=== PATIENT | female | born 2000 | race Caucasian/White ===

== ENCOUNTER → 2019-06-28 10:50 | Outpatient (BNVA) | payer MEDICAID, SELFPAY | PROVIDERS: Visit Provider Obstetrics & Gynecology | DX: Z34.90 Encounter for supervision of normal pregnancy, unspecified, unspecified trimester (principal) | CPT/HCPCS: 84315; 87491; 87591 ==

== ENCOUNTER → 2019-07-23 12:56 | Outpatient (BNVA) | payer MEDICAID, SELFPAY | PROVIDERS: Visit Provider Nurse Practitioner Women's Health | DX: O26.92 Pregnancy related conditions, unspecified, second trimester (principal); R79.89 Other specified abnormal findings of blood chemistry; O99.820 Streptococcus B carrier state complicating pregnancy; O99.322 Drug use complicating pregnancy, second trimester; O99.332 Smoking (tobacco) complicating pregnancy, second trimester; O99.342 Other mental disorders complicating pregnancy, second trimester; F32.9 Major depressive disorder, single episode, unspecified; Z3A.17 17 weeks gestation of pregnancy | CPT/HCPCS: 84315; 85007; 85027 ==

== ENCOUNTER → 2019-08-15 09:54 | Outpatient (BNVA) | payer MEDICAID, SELFPAY | PROVIDERS: Visit Provider Obstetrics & Gynecology | DX: Z36.2 Encounter for other antenatal screening follow-up (principal); Z3A.18 18 weeks gestation of pregnancy | CPT/HCPCS: 76805 ==

== ENCOUNTER → 2019-08-19 08:14 | Outpatient (BNVA) | payer MEDICAID, SELFPAY | PROVIDERS: Visit Provider Obstetrics & Gynecology | DX: Z34.82 Encounter for supervision of other normal pregnancy, second trimester (principal); D47.3 Essential (hemorrhagic) thrombocythemia | CPT/HCPCS: 81003 ==

== ENCOUNTER 2019-08-29 13:08 | Outpatient (CLI) | payer MEDICAID, SELFPAY ==
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
== END 2019-08-29 13:09 | disposition home or self-care (01) ==
LOC: ONCMED 13:11
PROVIDERS: Referring Provider Nurse Practitioner Women's Health; Visit Provider Internal Medicine Medical Oncology
DX: O99.019 Anemia complicating pregnancy, unspecified trimester (principal); D64.9 Anemia, unspecified; O99.340 Other mental disorders complicating pregnancy, unspecified trimester; F32.9 Major depressive disorder, single episode, unspecified; O99.119 Other diseases of the blood and blood-forming organs and certain disorders involving the immune mechanism complicating pregnancy, unspecified trimester
CPT/HCPCS: 99203

== ENCOUNTER → 2019-09-23 09:58 | Outpatient (BNVA) | payer MEDICAID, SELFPAY | PROVIDERS: Visit Provider Obstetrics & Gynecology Female Pelvic Medicine and Reconstructive Surgery | DX: Z34.90 Encounter for supervision of normal pregnancy, unspecified, unspecified trimester (principal); Z34.82 Encounter for supervision of other normal pregnancy, second trimester | CPT/HCPCS: 81000; 82950 ==

== ENCOUNTER → 2019-10-21 10:00 | Outpatient (BNVA) | payer MEDICAID, SELFPAY | PROVIDERS: Visit Provider Obstetrics & Gynecology | DX: Z34.90 Encounter for supervision of normal pregnancy, unspecified, unspecified trimester (principal); Z34.82 Encounter for supervision of other normal pregnancy, second trimester; O26.899 Other specified pregnancy related conditions, unspecified trimester; Z67.91 Unspecified blood type, Rh negative | CPT/HCPCS: 81000; 85027 ==

== ENCOUNTER → 2019-11-04 10:26 | Outpatient (BNVA) | payer MEDICAID, SELFPAY | PROVIDERS: Visit Provider Obstetrics & Gynecology | DX: Z34.90 Encounter for supervision of normal pregnancy, unspecified, unspecified trimester (principal) | CPT/HCPCS: 81000 ==

== ENCOUNTER → 2019-11-18 10:21 | Outpatient (BNVA) | payer MEDICAID, SELFPAY | PROVIDERS: Visit Provider Obstetrics & Gynecology | DX: Z34.82 Encounter for supervision of other normal pregnancy, second trimester | CPT/HCPCS: 81000 ==

== ENCOUNTER → 2019-12-02 10:49 | Outpatient (BNVA) | payer MEDICAID, SELFPAY | PROVIDERS: Visit Provider Obstetrics & Gynecology | DX: Z34.90 Encounter for supervision of normal pregnancy, unspecified, unspecified trimester (principal) | CPT/HCPCS: 81000 ==

== ENCOUNTER → 2019-12-16 11:51 | Outpatient (BNVA) | payer MEDICAID, SELFPAY | PROVIDERS: Visit Provider Obstetrics & Gynecology | DX: O99.333 Smoking (tobacco) complicating pregnancy, third trimester; F17.210 Nicotine dependence, cigarettes, uncomplicated; O98.813 Other maternal infectious and parasitic diseases complicating pregnancy, third trimester; Z3A.36 36 weeks gestation of pregnancy; Z34.83 Encounter for supervision of other normal pregnancy, third trimester | CPT/HCPCS: 81000; 87081 ==

== ENCOUNTER → 2019-12-23 10:22 | Outpatient (BNVA) | payer MEDICAID, SELFPAY | PROVIDERS: Visit Provider Obstetrics & Gynecology | DX: Z34.82 Encounter for supervision of other normal pregnancy, second trimester (principal) | CPT/HCPCS: 81000 ==

== ENCOUNTER → 2019-12-30 10:45 | Outpatient (BNVA) | payer MEDICAID, SELFPAY | PROVIDERS: Visit Provider Obstetrics & Gynecology | DX: O99.333 Smoking (tobacco) complicating pregnancy, third trimester; O99.343 Other mental disorders complicating pregnancy, third trimester; F32.9 Major depressive disorder, single episode, unspecified; O99.323 Drug use complicating pregnancy, third trimester; Z3A.38 38 weeks gestation of pregnancy; F17.210 Nicotine dependence, cigarettes, uncomplicated | CPT/HCPCS: 81000 ==

== ENCOUNTER → 2020-01-06 08:11 | Outpatient (BNVA) | payer MEDICAID, SELFPAY | PROVIDERS: Visit Provider Obstetrics & Gynecology | DX: O99.820 Streptococcus B carrier state complicating pregnancy (principal); D47.3 Essential (hemorrhagic) thrombocythemia; O99.343 Other mental disorders complicating pregnancy, third trimester; F32.9 Major depressive disorder, single episode, unspecified; O99.333 Smoking (tobacco) complicating pregnancy, third trimester; O99.323 Drug use complicating pregnancy, third trimester; F17.210 Nicotine dependence, cigarettes, uncomplicated; F12.90 Cannabis use, unspecified, uncomplicated; O09.893 Supervision of other high risk pregnancies, third trimester; F41.9 Anxiety disorder, unspecified; Z3A.39 39 weeks gestation of pregnancy; Z67.91 Unspecified blood type, Rh negative; R82.71 Bacteriuria | CPT/HCPCS: 81000 ==

== ENCOUNTER 2020-01-07 16:55 | Inpatient (IN) | payer MEDICAID, SELFPAY ==
[2020-01-07 17:18] VITALS: BP 122/71; PULSE 109
[2020-01-07 17:30] VITALS: RESP 18; TEMP 36.9
[2020-01-07 17:38] VITALS: BMI 29.7
[2020-01-07] MEDS: miSOPROStol 100 mcg tablet 25 MCG VAGINAL (18:09)
[2020-01-07 18:14] VITALS: BP 120/77; PULSE 110
[2020-01-07 18:29] VITALS: BP 112/68; PULSE 114
[2020-01-07 18:41] LABS: Basophils % 0.3 %; Eosinophils # 0.1 10^3/uL (0.0-0.8); Eosinophils % 0.4 %; Hematocrit 29.2 % (37.0-47.0); Hemoglobin 9.6 g/dL (11.5-15.3); Lymphocytes # 2.6 10^3/uL (0.8-4.8); Lymphocytes % 17.1 %; Mean Corpuscular HGB Conc 32.9 g/dL (30.0-36.0); Mean Corpuscular Volume 91.3 fL (81-99); Mean Platelet Volume 8.9 fL (7.4-10.4); Monocytes # 0.9 10^3/uL (0.2-0.9); Monocytes % 5.7 %; Neutrophils # 11.41 10^3/uL (1.8-7.7); Neutrophils % 75.2 %; Nucleated Red Blood Cells % 0 %; Platelet Count 539 10^3/cmm (130-400); Red Cell Distribution Width 12.3 % (12.1-15.1); White Blood Count 15.2 10^3/uL (4.0-10.0)
[2020-01-07 18:44] VITALS: BP 0/0; BP 122/67; PULSE 109
[2020-01-07 19:03] LABS: Amphetamines Screen Urine Negative (Negative); Barbiturates Screen Urine Negative (Negative); Benzodiazepines Screen Urine Negative (Negative); Cocaine Screen Urine Negative (Negative); Opiate Screen Urine Negative (Negative); PCP Screen Urine Negative (Negative); THC Screen Urine Positive (Negative)
[2020-01-07] MEDS: promethazine 25 mg/mL SDV 1 mL IM (23:39)
[2020-01-07] MEDS: morphine 4 mg/mL SDV 1 mL 10 MG IM (23:39)
[2020-01-08] VITALS (86 sets, daily range): BP systolic 0–133; BP diastolic 0–73; PULSE 79–112; RESP 15–17; TEMP 36.7–37.1; O2SAT 98
[2020-01-08] MEDS: miSOPROStol 100 mcg tablet 25 MCG VAGINAL (08:01)
[2020-01-08] MEDS: alum-mag-hydroxide-sime 30 mL UDC PO ×2 (08:15→18:07)
[2020-01-08] MEDS: dextrose 5%-lactated ringers 1,000 ML 125 ML IV (13:02)
[2020-01-08] MEDS: oxytocin 30 UNIT/500 ML BAG IV (13:02)
[2020-01-08] MEDS: ampicillin 2,000 MG in sodium chloride 0.9% (plus) 50 ML 100 MG IV (13:02)
[2020-01-08] MEDS: fentaNYL 50 mcg/mL INJ 2mL IVP (13:47)
[2020-01-08] MEDS: lactated ringers 1,000 ML 999 ML IV ×2 (16:07→17:02)
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
[2020-01-08] MEDS: ampicillin 1,000 MG in sodium chloride 0.9% (plus) 50 ML 100 MG IV ×2 (17:01→20:54)
--- NOTE | 2020-01-08 17:19 | ANES.PROC ---
Anesthesia Procedures Procedure/Date: 01/08/20 Epidural: Time Out Performed: Yes Consents Signed: Procedure Consent Consent: requested by attending/covering physician, risks and benefits reviewed and patient agrees to proceed Lumbar Level: L3-L4 Epidural position: sitting Epidural procedure: sterile prep of area (betadine), 1% lidocaine to numb the area (3ml), 18 g needle, neg for paresthesia, test dose given, 1.5% xylocaine 1:200k epi (5ml), 0.2% Ropivacaine bolus ml (5ml), placed PCEA, no systemic response, sterile dressing applied, L.U.D. no apparent complications and 0.2% Ropiavacaine @ mls/hr (11ml/hr)
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
[2020-01-09] VITALS (37 sets, daily range): BP systolic 0–139; BP diastolic 0–74; PULSE 79–116; RESP 15–18; TEMP 36.6–37.3; O2SAT 97–100
[2020-01-09] MEDS: ampicillin 1,000 MG in sodium chloride 0.9% (plus) 50 ML 100 MG IV (01:48)
--- NOTE | 2020-01-09 04:05 | PM.DELIVERY ---
Delivery Note: Date of delivery: January 09, 2020 Pre-delivery diagnoses: 1. Term at 39-3/7 weeks gestation 2. GBS positive carrier status in third trimester 3. Anemia in in third trimester 4. Rh-negative status in third trimester 5. Marijuana use in in third trimester 6. Tobacco use during in third trimester 7. Depression during in third trimester Post-delivery diagnoses: 1. Term at 39-3/7 weeks gestation - delivered 2. Fourth degree perineal laceration 3. GBS positive carrier status in - delivered 4. Anemia and - delivered 5. Rh- status in - delivered 6. Marijuana use in - delivered 7. Tobacco use during - delivered 8. Depression during - delivered 9. Viable male Procedure: Spontaneous vaginal delivery and Fourth degree perineal laceration repair Op report anesthesia: Epidural Delivering Physician: Hugh Cota MD Estimated blood loss (mL): 150 Pre-Delivery Course: Patient is a 19-year-old white female 2, para 0-0-1-0 with an LMP of 03/25/2019 and an EDC of 01/13/2020 based on an 18-week ultrasound, which placed her at 39-1/7 weeks gestation at time of admission. Patient presented to L&D in the evening of 01/06 for cervical ripening and induction of labor due to term and patient desire. She received Cytotec 25 mcg vaginally and proceeded to contract regularly through the night. By the following morning, she had made minimal change and had another Cytotec 25 mcg placed vaginally. By approximately noon, she was started on Pitocin. She was also started on ampicillin for GBS prophylaxis. She became more uncomfortable and had epidural placed. By the evening she started making cervical change. She had spontaneous rupture of membranes at 23:28. She was an anterior gonzález and pushed once and the rim reduced. She was then considered complete dilation at 02:15 on 01/08. Delivery: She started pushing at 02:14. Approximately 6 minutes prior to delivery, bradycardia to the 70s and 80s occurred which was thought to be secondary to head compression. However, to expedite delivery, a second-degree episiotomy was made. She delivered with the next contraction. She delivered at 02:58 as a spontaneous vaginal delivery of an occiput anterior male infant over a second-degree episiotomy under epidural anesthesia. Following delivery of the infant's head, no nuchal cords were noted. The rest the delivered atraumatically with the left shoulder anterior. Baby was placed on the mother's abdomen where it was left in the care of the waiting nurses. Baby was spontaneously crying. Cord was clamped. It was cut by a family member. Cord blood was obtained. Pitocin bolus was started. Placenta delivered intact by simple expression at 03:02. Cervix and upper vagina were palpated and noted to be intact. Labia and perineum were inspected and noted to be intact except for 1/4 degree extension of her second-degree episiotomy. The rectal mucosa had been torn for a distance of approximately 3 cm from the anal opening. The rectal and anal mucosa were reapproximated using 3-0 chromic suture in a simple running fashion. The muscularis of the rectum was folded over the suture line using running stitch of 3-0 Vicryl suture. The vaginal mucosa and underlying tissue was reapproximated using 3-0 Vicryl suture in a running locking fashion. This was carried to just inside of the hymenal ring and then held. The anal sphincter was identified and grasped with Allis clamps. The sphincter and surrounding capsule was reapproximated using interrupted stitches of 2-0 Vicryl suture with stitches placed at 6, 8, 4, 10, 2, and 12:00 positions. The perineal body was then further built-up using interrupted stitches of 2-0 Vicryl suture. The previously held 3-0 Vicryl suture within the vaginal mucosa was then carried to just beyond the hymenal ring. A transition stitch was made. The bulbocavernosus muscles were incorporated into the stitch bilaterally and this stitch tied. The superficial perineal tissue was reapproximated using 3-0 Vicryl suture in a running fashion. Perineal skin was reapproximated using 3-0 Vicryl suture in a subcuticular fashion. FINDINGS 1. Viable male infant weighing 8 lbs 4 oz (3745 g) with a length of 21-1/2 inches and Apgars of 7 at 1 minute and 9 at 5 minutes. 2. Three-vessel cord with no loops of nuchal cord noted. 3. Normal-appearing placenta with an eccentric cord insertion. 4. Fourth degree perineal laceration Post-Delivery Status: Mother and infant were left to recover in satisfactory condition. A&P Assessment and plan (1) Term delivered: Status: Acute (2) Fourth degree perineal laceration: Status: Acute (3) Anemia during , delivered, current hospitalization: Status: Acute (4) Group B Streptococcus carrier, delivered, current hospitalization: Status: Acute (5) Mental disorder in , delivered: Status: Acute (6) Rh negative, delivered, current hospitalization: Status: Acute (7) Drug dependence of mother in , delivered: Status: Acute (8) Tobacco use during , delivered: Status: Acute Coding Level of Care Code Acute Pattern Storage Clerk for [facility] [facility] Diagnoses Term delivered O80 Fourth degree perineal laceration O70.3 Group B Streptococcus carrier, delivered, current hospitalization O99.824 Anemia during , delivered, current hospitalization O99.02 Rh negative, delivered, current hospitalization O26.899; Z67.91 Drug dependence of mother in , delivered O99.324; F19.20 Tobacco use during , delivered O99.334 Mental disorder in , delivered O99.344
[2020-01-09] MEDS: lidocaine 2% INJ 20 mL INJECTION (04:08)
[2020-01-09] MEDS: lanolin oint 7 gm 1 APPLIC TOPICAL (05:39)
[2020-01-09] MEDS: benzocaine-menthol 78 gm Canister 1 SPRAY TOPICAL (05:40)
[2020-01-09] MEDS: prenatal vitamin Capsule 1 CAP PO (10:26)
[2020-01-09] MEDS: docusate sodium 100 mg Capsule PO ×2 (10:26→18:19)
[2020-01-09 18:12] LABS: Hemoglobin 8.5 g/dL (11.5-15.3); Mean Corpuscular HGB Conc 32.7 g/dL (30.0-36.0); Mean Corpuscular Hemoglobin 30.6 pg (28.0-34.0); Mean Corpuscular Volume 93.5 fL (81-99); Mean Platelet Volume 8.6 fL (7.4-10.4); Platelet Count 401 10^3/cmm (130-400); Red Blood Count 2.78 10^6/uL (4.1-5.3); Red Cell Distribution Width 12.5 % (12.1-15.1); White Blood Count 14.1 10^3/uL (4.0-10.0)
[2020-01-09] MEDS: TRAMadol 50 mg Tablet PO (19:49)
[2020-01-10 05:59] VITALS: BP 102/62; PULSE 82; RESP 15; TEMP 36.9
--- NOTE | 2020-01-10 06:02 | P.DS_ITS ---
Discharge Providers DEV OPS ENGINEER Date of Admission: 01/08/20 19:45 Date of Discharge: 01/10/20 Attending Provider at Admission: Hugh Cota MD Attending Provider at Discharge: Hugh Cota MD Diagnoses at Discharge Discharge Diagnosis (1) Term delivered: Status: Acute (2) Fourth degree perineal laceration: Status: Acute (3) Group B Streptococcus carrier, delivered, current hospitalization: Status: Resolved (4) Anemia during , delivered, current hospitalization: Status: Acute (5) Rh negative, delivered, current hospitalization: Status: Resolved (6) Drug dependence of mother in , delivered: Status: Resolved (7) Tobacco use during , delivered: Status: Resolved (8) Mental disorder in , delivered: Status: Acute Reason for Visit Reason for Visit: induction of labor Hospital Course Hospital Course: Patient is a 19-year-old white female 2, para 0-0-1-0 with an LMP of 03/25/2019 and an EDC of 01/13/2020 based on an 18-week ultrasound, which placed her at 39-1/7 weeks gestation at the time of admission. She presented to labor and delivery in the evening of 01/06 for Cytotec cervical ripening and induction of labor due to term and desire to be delivered. She had 1 Cytotec 25 mcg vaginally that evening and a second dose the following morning. She was started on Pitocin by around noon on 01/07. She had also been started on ampicillin for GBS prophylaxis due to positive GBS status. She had epidural placed later that afternoon. She had spontaneous rupture of membranes at 23:28 on 01/07. She progressed to complete dilation by 02:15 on 01/08. She delivered at 02:58 as a spontaneous vaginal delivery of an occiput anterior male infant over a second-degree midline episiotomy under epidural anesthesia. The episiotomy extended to a 4th degree laceration which was repaired. The baby weighed 8 pounds 4 ounces (3745 g with a length of 21- 1/2 inches and Apgars of 7 at 1 minute and 9 at 5 minutes. Following delivery mother and baby did well. Day 1 Patient reported doing well. She was tolerating a regular diet without nausea or vomiting. She was ambulating without lightheadedness or dizziness. She denied shortness of breath or chest pains. She reported her pain was well controlled. She denied problems with urination. She reported her bleeding had slowed. She was requesting to go home. Physical Exam: See below Plan Discharged home. Patient plans to use [id number] ibuprofen for pain relief. Patient denied problems with depression and had not been requiring medication. Potential for development of depression was discussed. Patient not interested in medications at this time. Patient was anemic . She was instructed to take her vitamins at home and encour aged to take [id number]-eor-[id number] iron. Information Peripartum Data: Delivery Method: Vaginal Physical Exam Const: COMMON NORMALS: no acute distress, average body habitus, alert and well nourished GENERAL APPEARANCE: well developed ORIENTATION/CONSCIOUSNESS: Yes oriented to person, Yes oriented to place and Yes oriented to time Resp: COMMON NORMALS: normal respiratory effort and clear to auscultation bilaterally AUSCULTATION: clear to auscultation bilaterally Cardio: COMMON NORMALS: regular rate, regular rhythm, No gallops present (Cardio) and No rub (Cardio) RATE: regular rate RHYTHM: regular rhythm GI: COMMON NORMALS: Soft to palpation, non-tender, No hepatosplenomegaly present and no masses (except for firm, nontender uterus 2 fingerbreaths below umbilicus) AUSCULTATION: Yes normoactive bowel sounds PALPATION: Yes Soft to palpation, Yes No hepatosplenomegaly present and No Hernia present : EXTERNAL FEMALE EXAM: No Hernia present Extremity: COMMON NORMALS: no calf tenderness NARRATIVE EXTREMITY EXAM: trace edema bilaterally Neuro: SENSORIUM/ORIENTATION: Yes alert, Yes oriented to person, Yes oriented to place and Yes oriented to time Psych: COMMON NORMALS: normal affect MOOD & AFFECT: Yes euthymic mood Urinary Catheter Management^: Nicole: Cath Placed During This Visit: yes, but has since been removed by the nurse Reason for Continuing Indwelling Catheter: Required Immobilization for Trauma or Surgery or Anesthesia Urinary Catheter Date of Insertion: 01/08/20 Urinary Catheter Time of Insertion: 17:50 Date Urinary Catheter Removed: 01/09/20 Time Urinary Catheter Discontinued: 02:10 Discharge Data Data Completed and Pending: Pending at discharge Category Date Time Status Complete Crossmat ch Routine Lab 01/07/20 18:00 Results Rho D Immune Glob ulin Routine Lab 01/07/20 18:00 Results Type and Screen R outine Lab 01/07/20 18:00 Results Labs from last 24 hours 01/09/20 01/09/20 01/07/20 17:53 17:53 18:00 WBC 14.1 H RBC 2.78 L Hgb 8.5 L Hct 26.0 L MCV 93.5 MCH 30.6 MCHC 32.7 RDW 12.5 Plt Count 401 H MPV 8.6 Blood Type A Negative Rho(D) Type Negative Antibody Screen Negative Screen Negative Vitals: Last Vital Signs Temp 98.4 F 01/10/20 05:59 Pulse 82 01/10/20 05:59 Resp 15 01/10/20 05:59 BP 102/62 01/10/20 05:59 Pulse Ox 99 01/09/20 16:32 Discharge Plan Discharge Patient Disposition: Home Condition: Stable Prescriptions: Continued Gummies 400 mcg-35 mg- 25 mg-5 mg tablet,chewable PO DAILY RF: 0 Discharge Orders: Discharge Order (Routine); Ordered 01/10/20 Ordered By: Hugh Cota Referrals: Tom Mallory MD [Physician] - 02/21/20 1:00 pm (* Your 6 week follow up appointment is with Dr. Mallory on Friday February 21, 2020 at 1:00pm. ) Discharge Diet: Regular Discharge Activity: Limit activity as instructed Patient Instructions: OB Discharge Report, OB Anesthesia Instructions, OB Food/Drug Interaction Guide, OB Home Care, OB Proud Parent Packet, OB Vaginal Deliveries - [facility] Activity Restrictions/Additional Instructions: may use OTC ibuprofen 200 mg (3 tablets 4 times a day or 4 tablets 3 times a day, as needed for pain. Recommend use of stool softeners or MiraLax Discharge Date/Time: 01/10/20 10:05 Discharge Attestations DEV OPS ENGINEER Time Spent in Discharge Care*: less than 30 min Coding Level of Care Code Acute Chemical Plant Operator for Chg Fwd Exam Detailed Diagnoses Term delivered O80 Fourth degree perineal laceration O70.3 Group B Streptococcus carrier, delivered, current hospitalization O99.824 Anemia during , delivered, current hospitalization O99.02 Rh negative, delivered, current hospitalization O26.899; Z67.91 Drug dependence of mother in , delivered O99.324; F19.20 Tobacco use during , delivered O99.334 Mental disorder in , delivered O99.344
[2020-01-10 09:41] VITALS: BP 94/61; PULSE 92; RESP 17; TEMP 36.8; O2SAT 98
[2020-01-10 10:00] VITALS: BP 94/61; PULSE 92; RESP 18; TEMP 36.7; O2SAT 98
--- NOTE | 2020-01-10 16:19 | PC.RESP ---
SMOKING CESSATION INFORMATION SENT TO PATIENT.
== END 2020-01-10 10:05 | disposition home or self-care (01) | DRG 768 ==
PROVIDERS: Admitting Provider Obstetrics & Gynecology; Visit Provider Obstetrics & Gynecology
DX: O99.824 Streptococcus B carrier state complicating childbirth (principal); Z37.0 Single live birth; Z3A.39 39 weeks gestation of pregnancy; O99.334 Smoking (tobacco) complicating childbirth; F17.210 Nicotine dependence, cigarettes, uncomplicated; O99.02 Anemia complicating childbirth; D64.9 Anemia, unspecified; O99.324 Drug use complicating childbirth; O99.344 Other mental disorders complicating childbirth; F99 Mental disorder, not otherwise specified; F12.20 Cannabis dependence, uncomplicated; F32.9 Major depressive disorder, single episode, unspecified; O70.3 Fourth degree perineal laceration during delivery
CPT/HCPCS: 12345; 36415; 51702; 59409; 80306; 85025; 85027; 85460; 86850; 86900; 90384; 96372; 96374; 98960; G0378; G0379; J0290; J2270; J2550; J2795; J3010

== ENCOUNTER 2020-02-12 11:20 | Day surgery (SDC) | payer MEDICAID, SELFPAY ==
[2020-02-11 09:57] VITALS: BMI 29.7
[2020-02-12] VITALS (9 sets, daily range): BP systolic 108–152; BP diastolic 67–99; PULSE 66–96; RESP 13–24; TEMP 36.2–36.8; O2SAT 90–100
--- NOTE | 2020-02-12 11:33 | W.PM.OPSUD ---
Surgery/Procedure H&P Update DATE OF PROCEDURE: February 12, 2020 DATE H&P PERFORMED: 01/30/20 H&P UPDATE INFORMATION: I have reviewed H&P completed within last 30 days, I have examined patient prior to procedure and No changes to prior documentation PREOP DIAGNOSIS: cholelithiasis PLANNED PROCEDURE: Operation Date: 02/12/20 13:00 Proposed Procedures p Laparoscopic poss Open Cholecystectomy 52708 K80.20(Not Applicable) - Eduin Ross MD
[2020-02-12 11:51] LABS: OR HCG Qualitative Urine Negative (Negative)
[2020-02-12] MEDS: sodium chloride 0.9% 1,000 ML 30 ML IV (11:53)
--- NOTE | 2020-02-12 12:03 | P.ANESASSM_ITS ---
Pre-Anesthetic Assessment Pre-Anesthetic Assessment: Height/Weight: Height 1.65 m Weight 81.193 kg Temp Pulse Resp BP Pulse Ox 97.7 F 66 18 108/68 100 02/12/20 11:43 02/12/20 11:43 02/12/20 11:43 02/12/20 11:43 02/12/20 11:43 Preop Diagnosis: cholelithiasis Proposed Procedure: Operation Date: 02/12/20 13:00 Proposed Procedures p Laparoscopic poss Open Cholecystectomy 24970 K80.20(Not Applicable) - Eduin Ross MD Was Beta Walt taken within 24 hours: N/A Last intake: Intake Last Liquid Date 02/12/20 Last Liquid Time 01:00 Last Solid Date 02/11/20 Last Solid Time 21:00 Last Intake: 23:00 Social: Social History: No alcohol and No tobacco (stop ) Packs per day: 1 Exam: Pre-Anes Outpt Exam: alert, oriented x 3, clear to auscultation bilaterally and regular rate & rhythm Airway: Submandibular: WNL Cervical ROM: WNL MP: 2 Pulmonary: Pulmonary: None reported CV/HEM: CV/HEM: Anemia (with ) : : None reported Hepatic: Hepatic: None reported GI: GI: GERD (food related) Metabolic: Metabolic: None reported Musc/skel: Musc/skel: None reported Neuropsych: Neuropsych: None reported Anesthetic Plan: ASA status: 2 Anesthesia: Anesthesia Evaluation and General Risk of > 500 ml blood loss (7ml/kg in children): No Meds/Allergies Current Medications: Current Medications Generic Name Dose Route Start Last Admin Trade Name Freq PRN Reason Stop Dose Admin Sodium Chloride 1,000 mls @ 30 ml s/hr 02/12/20 11:30 02/12/20 11:53 Sodium Chloride 0.9% IV 02/13/20 11:29 30 mls/hr .Q24H WILLIAN Administration PFSH Anesthesia PFSH: Medical History (Updated 01/31/20 @ 17:21 by Eduin Ross MD) Chronic headache - encouraged tylenol and benadryl; may need neuro referral History of depression - has been off medication for several weeks; managed without medication Surgical History History of dilation and curettage (~2017) ---[place] SAB[place] [facility] [place] Family History Grandmother Hypertension maternal Grandfather Non-Hodgkin lymphoma Maternal Unknown Patient denies medical problems Denies family history of: stroke,thyroid,dm,breast/ovarian/uterine/ colon/prostate cancer Other Cancer Denies family history of Diabetes Anesthesia complication Bleeding disorder Social History Smoking and tobacco status: current every day smoker Quit status (tobacco): has quit using tobacco Former quit date comment: 12/09/19 Alcohol intake: never Lives independently: Yes Marital status: Single Current occupational status: employed History of recent travel: No Female Reproductive History: Date of last menstrual period: 02/06/19 Data Anesthesia Other Labs: Laboratory Results - last 48 hr 02/12/20 11:25 Urine HCG, Qual Negative Cardiac Studies: No Data to Display
[2020-02-12] MEDS: ketorolac 30 mg/mL INJ 15 MG IVP (14:15)
--- NOTE | 2020-02-12 14:17 | SUR.PHASEI ---
1411 PATIENT TO PACU FROM OR. RR EVEN AND UNLABORED. SPO2 98% ON RA. 4 INCISIONS TO ABDOMEN, CDI, CLOSED WITH EXOFIN.
[2020-02-12] MEDS: fentaNYL 50 mcg/mL INJ 2mL IVP (14:22)
--- NOTE | 2020-02-12 14:38 | SUR.PHASEI ---
1432 PATIENT TO OPS. RR EVEN AND UNLABORED. TOLERATING ICE CHIPS. 4 INCISIONS TO ABDOMEN, CDI.
--- NOTE | 2020-02-12 14:39 | SUR.PHASEI ---
1432 ANESTHESIA AWARE OF LAST DOSE OF PAIN MEDICATION. THIS NURSE REMAINED WITH PATIENT UNTIL 1433
[2020-02-12] MEDS: HYDROcodone-acetaminophen 5-325 mg Tablet 1 TAB PO (15:14)
--- NOTE | 2020-02-12 15:32 | P.OP_ITS ---
Operative Report Date of procedure: February 12, 2020 Pre-op Diagnosis: cholelithiasis Post-op Findings: Chronic calculus cholecystitis Procedure Done: Laparoscopic cholecystectomy Specimens removed/disposition: gallbladder Surgeon: Eduin Ross Surgeon: Condition: stable Disposition: PACU Procedure: The patient was taken to the operating room and was intubated under general anesthesia. After the antibiotic had been administered, the abdomen was prepped and draped in a sterile manner. Using a #15 blade, a 1 centimeter infraumbilical curvilinear incision was made and using an open Chan technique the peritoneal cavity was entered. A 10 millimeter port was placed and 15 millimeters of pneumoperitoneum was created. A 10 millimeter, 30 degrees scope was then introduced. Three 5 millimeter ports were placed in the epigastric, midclavicular and the anterior axillary line two fingerbreadths below the costal margin on the right side under the direct visualization. The gallbladder wall w as thickened, the stomach and the colon was adherent to the body of the gallbladder which had to be slowly peeled away using blunt dissection and electrocautery until the infundibulum of the gallbladder was identified. Ratcheted forceps were introduced into the lateral most port and was used to retract the fundus of the gallbladder cephalad and using forceps the infundibulum of the gallbladder was retracted laterally. Using L-hook cautery the peritoneum overlying the Calot's triangle was opened medially and laterally until the cystic duct and the cystic artery were skeletonized. There was s ignificant inflammation near the cystic duct which made dissection difficult. There was bleeding from the cystic artery where there was significant inflammation which was controlled with clips. Dissection was carried along the body of the gallbladder and after ensuring critical view of safety, 4 clips applied on the cystic duct and 3 clips applied on the cystic artery and cut leaving, 3 clips on the remaining portion of the duct and 2 clips on the remaining portion of the artery. The rest of the gallbladder was dissected off the liver using L-hook cautery. There was no bleeding or bile leaking noted from the gallbladder fossa and the clips appeared to be in place. An EndoCatch bag was introduced to remove the gallbladder. All the ports were removed under direct visualization and there was no bleeding noted from the port sites. The fascia of the umbilicus was closed using [id number] 0 Vicryl sutures and the subcutaneous tissue was approximated using 3-0 Vicryl sutures. The skin at all four ports were closed using 4-0 Monocryl and Dermabond. A total of 10 millimeters of 0.5% Marcaine was infiltrated around the port sites. The patient was stable throughout the procedure.
== END 2020-02-12 16:18 | disposition home or self-care (01) ==
PROVIDERS: Anesthesiology; Visit Provider Surgery
PROC: 0FT44ZZ Resection of Gallbladder, Percutaneous Endoscopic Approach (ICD-10-PCS; CPT 47562; principal; 2020-02-12 13:00)
DX: K80.10 Calculus of gallbladder with chronic cholecystitis without obstruction (principal); K21.9 Gastro-esophageal reflux disease without esophagitis; Z87.891 Personal history of nicotine dependence
CPT/HCPCS: 47562; 12345; 81025; 84703; 88304; J0690; J1100; J1885; J2405; J2704; J3010; J3490; J7030

== ENCOUNTER 2023-03-17 10:22 | Emergency (ER) | payer MEDICAID, SELFPAY ==
[2023-03-17] VITALS (7 sets, daily range): BP systolic 108–180; BP diastolic 57–85; PULSE 84–101; RESP 15–18; TEMP 36.6; O2SAT 93–100; BMI 26.6
[2023-03-17 11:22] LABS: Basophils # 0.1 10^3/uL (0.0-0.1); Basophils % 0.3 %; Eosinophils % 0.3 %; Hematocrit 34.2 % (36-47); Lymphocytes # 1.1 10^3/uL (0.8-4.8); Lymphocytes % 7.8 %; Mean Corpuscular HGB Conc 33.6 g/dL (30-55); Mean Corpuscular Hemoglobin 30.8 pg (27-33); Mean Corpuscular Volume 91.7 fl (85-98); Mean Platelet Volume 8.5 fL (7.4-10.4); Monocytes # 0.6 10^3/uL (0.2-0.9); Monocytes % 4.4 %; Neutrophils % 86.7 %; Nucleated Red Blood Cells % 0 %; Platelet Count 394 10^3/cmm (157-399); Red Blood Count 3.73 10^6/uL (3.85-5.65); Red Cell Distribution Width 12.3 % (12.1-15.1); White Blood Count 14.42 10^3/uL (3.29-11.43)
--- NOTE | 2023-03-17 11:23 | CT_ITS ---
WS: [id number] CT FACIAL BONES with contrast HISTORY: left face swelling TECHNIQUE: Images obtained from the supraorbital location through the mandible. Soft tissue and bone windows are reviewed. Coronal and sagittal reformats have also been submitted. DLP: 606.[address] scans at [facility] use at least one of these dose optimization techniques: automated e xposure control; mA and/or kV adjustment per patient size (includes targeted exams where dose is matc hed to clinical indication); or iterative reconstruction. COMPARISON: None available. Axial imaging with and without contrast. Reformatted images. Omnipaque 350; 80 mL IV. Complex fluid collection in the LEFT route salesman and driver and parotid spaces. There is a complex fluid collecti on with enhancing clark and adjacent soft tissue edema and inflammation. This is a multiloculated flu id collection measuring 5.2 cm transversely by 3.1 cm anterior posterior and extends over a length of 3.7 cm. Fluid collection along the medial LEFT mandible in the sublingual space and extends posterio r and lateral to the mandibular ramus. There is extension into the parotid gland. There is also invol vement of the masseter muscles. Large hypervascular cervical chain lymph nodes at level 1 and level 2 . Largest lymph node is 1.6 cm at level 1B on the LEFT. Additional hypervascular enlarged level 2 lym ph nodes. There is evidence for dental caries involving several of the molars in the LEFT mandible. Suspect thi s may be an dental abscess from dental caries. Loss of the normal mandible surrounding several of the posterior left-sided molars. No air-fluid levels in the sinuses. Normal orbits and globes. IMPRESSION: 1. Large complex fluid collection with peripheral enhancement and soft tissue enhancement centered in volving the LEFT masseter and parotid spaces. Consistent with an abscess. Abscess measures 5.2 x 3.1 x 3.7 cm and. Favor this is probably an abscess due to the adjacent dental caries with loss of the no rmal bone surrounding several of the molars in the LEFT mandible. 2. Significantly enlarged hyperemic lymph nodes in the LEFT neck involving the level 1 and level 2.
--- NOTE | 2023-03-17 11:26 | W.ED.DENTAL ---
HPI - Dental/Oral General: Chief complaint: Dental/Oral Stated complaint: absence on left side face Time Seen by Provider: 03/17/23 11:19 Source: patient and family Mode of arrival: ambulatory Limitations: no limitations History of Present Illness: This patient presents to our emergency department because swelling of her left face which is gradually worsened over the past 3 days. She states that she has had some prodromal pain in her left jaw and teeth for several days prior to the onset of her current swelling. She has had some subjective fever as well. She states she has been able to drink fluids but not able to eat well because of the discomfort discomfort and swelling. She has a history of recurrent dental abscesses in the past. She has no current dental care. She denies any other symptoms at this time. She states that she has been taking amoxicillin for the past 3 days that she obtained at the feed store. Duration: worsening Associated symptoms: Reports fever(s); Denies odynophagia Review of Systems Const: Reports: fever(s); Denies: chills or body aches Eyes: Denies: change in vision or blurry vision ENMT: Reports: dental pain and halitosis; Denies: throat pain, odynophagia, nasal discharge or nasal congestion Card: Denies: chest pain or palpitations Resp: Denies: dyspnea, productive cough or non-productive cough GI: Denies: abdominal pain, nausea, vomiting or diarrhea : Denies: difficulty voiding, dysuria or vaginal bleeding Musc: Denies: neck pain, back pain, extremity pain or extremity swelling Skin/Breast: Denies: rash or pruritus Neuro: Denies: headache(s), numbness in extremities or weakness in extremities Robert/Lymph: Denies: easy bruising or easy bleeding PFSH ED PFSH: Medical History Anemia during , delivered, current hospitalization Chronic headache - encouraged tylenol and benadryl; may need neuro referral Encounter for surveillance of transdermal patch hormonal contraceptive device Fourth degree perineal laceration History of depression - has been off medication for several weeks; managed without medication Mental disorder in , delivered Term delivered Thrombocytosis Surgical History History of dilation and curettage (~2018) ---treatment for SAB--- [facility] Status post laparoscopic cholecystectomy (02/12/20) Family History Grandmother Hypertension maternal Grandfather Non-Hodgkin lymphoma Maternal Unknown Patient denies medical problems Denies family history of: stroke,thyroid,dm,breast/ovarian/uterine/colon/prostate cancer Other Cancer Denies family history of Diabetes Anesthesia complication Bleeding disorder Social History Smoking and tobacco status: former smoker Quit status (tobacco): has quit using tobacco Former quit date comment: 12/09/19 Alcohol intake: never Substance/Drug Use: never Lives independently: Yes Marital status: Single Current occupational status: employed Female Reproductive History: Para: 1 Spontaneous abortions: Yes (1) Physical Exam Narrative: EXAM NARRATIVE: The patient is alert obvious some discomfort and swelling of her left face. Const: COMMON NORMALS: average body habitus, patient oriented x3 and alert GENERAL APPEARANCE: cooperative ORIENTATION/CONSCIOUSNESS: Yes awake, Yes oriented to person and Yes oriented to place HENMT: COMMON NORMALS: normocephalic, atraumatic, TM's normal bilaterally and Normal external nose present HEAD & SCALP: normocephalic and atraumatic FACE & SINUS: edema FACE & SINUS IMAGES: 1. Swelling NOSE: Normal external nose present TYMPANIC MEMBRANE: TM's normal bilaterally TEETH & GINGIVA: Yes poor dentition OTHER: Patient's notable for extremely poor dental repair with numerous decayed and missing teeth. She has had tenderness over her left face to include from the inferior portion of the orbit down to the inferior mandible. She has some reduced ability to open her mouth. Tongue is noted to be mobile without any subungual edema or change in character. Able to speak in complete sentences. Eye: COMMON NORMALS: Equal, round and reactive pupils present, EOMs intact bilaterally and conjunctivae normal CONJUNCTIVA: Yes conjunctivae normal PUPIL: Yes Equal, round and reactive pupils present Neck/C-Spine: COMMON NORMALS: full ROM, supple, no meningeal signs and Thyroid normal THYROID: Thyroid normal Chest: COMMONS NORMALS: normal inspection of the chest Resp: COMMON NORMALS: normal respiratory effort, No use of accessory muscles and clear to auscultation bilaterally AUSCULTATION: clear to auscultation bilaterally Cardio: COMMON NORMALS: regular rate, regular rhythm, No murmurs present (Cardio) and Peripheral pulses 2+ throughout RATE: regular rate RHYTHM: regular rhythm PERIPHERAL PULSES: Peripheral pulses 2+ throughout GI: COMMON NORMALS: Normal to inspection, nondistended, normoactive bowel sounds present and Soft to palpation PALPATION: Yes Soft to palpation Back/Pelvis: COMMON NORMALS: thoracic and lumbar spine normal to inspection, no thoracic nor lumbar tenderness and thoraco-lumbar ROM normal Extremity: COMMON NORMALS: normal to inspection, full ROM, no calf tenderness and no pedal edema Neuro: COMMON NORMALS: patient oriented x3, moves all extremities, no focal motor deficits and no sensory deficits noted SENSORIUM/ORIENTATION: Yes alert, Yes oriented to person and Yes oriented to place MENINGEAL SIGNS: Yes no meningeal signs CRANIAL NERVES: Yes CN normal except as noted Psych: COMMON NORMALS: mental status grossly normal Skin: COMMON NORMALS: no wounds and turgor normal GENERAL SKIN EXAM: turgor normal Course Reevaluation(s): Reevaluation #1: Discussed CT scan findings with the patient and mother. Time: 12:27 Reevaluation #2: Recheck on patient reveals that she is actually having some increased mobility more easily. I discussed expectAnd able to open her jaw a little bit course and plan of care. Time: 14:46 Consultations: Consultation #1: Who recommendPhone consultation with Dr. Campo of [facility] service as transfer to hospitalist service and he will consult for possible surgical drainage. Time: 13:28 Consultation #2: Discussed with Elizabeth reviewed her case Who is a [employer] ODD with the hospitalist service from [facility] she agreed to accept the patient for the hospitalist service. Time: 14:41 Vital Signs: Vital signs: Vital Signs Temperature 97.8 F 03/17/23 11:01 Pulse Rate 84 03/17/23 11:13 Respiratory Rate 16 03/17/23 11:13 Blood Pressure 129/85 03/17/23 11:13 Pulse Oximetry 100 03/17/23 11:13 Oxygen Delivery Me thod Room Air 03/17/23 11:13 [facility] - Dental/Oral Medical Decision Making Patient presented with a 3+ day history of increasing facial swelling difficulty with eating because of current symptoms as well as associated subjective fevers. Past history of significant issues with poor dentition etc. Clinical presentation revealed her to be uncomfortable however she was not tachycardic and had otherwise normal vital signs in the emergency department. Her clinical examination revealed some evidence of trismus but she had a mobile tongue and otherwise no evidence to suggest a involvement of her deep spaces of her neck. Because of her presentation a imaging was ordered in addition to empiric treatment with steroids, antibiotics and analgesics. Complex fluid collection consistent with abscess to involve various structures including the masseter, parotid etc. on CT scan prompted consultation with oral maxillofacial surgery. They recommended transfer to [facility] inpatient service and they will consult for her care and possible surgical drainage. Discussed with hospitalist service at [facility] who agreed to accept the patient in transfer. Lab Data I reviewed the patient's lab results. 03/17/23 11:10 03/17/23 11:10 Laboratory Results WBC 14.42 10^3/uL (3.29-11.43) H 03/17/23 11:10 RBC 3.73 10^6/uL (3.85-5.65) L 03/17/23 11:10 Hgb 11.50 g/dL (11.27-16.99) 03/17/23 11:10 Hct 34.2 % (36-47) L 03/17/23 11:10 MCV 91.7 fl (85-98) 03/17/23 11:10 MCH 30.8 pg (27-33) 03/17/23 11:10 MCHC 33.6 g/dL (30-55) 03/17/23 11:10 RDW 12.3 % (12.1-15.1) 03/17/23 11:10 Plt Count 394 10^3/cmm (157-399) 03/17/23 11:10 MPV 8.5 fL (7.4-10.4) 03/17/23 11:10 Neut % (Auto) 86.7 % 03/17/23 11:10 Lymph % (Auto) 7.8 % 03/17/23 11:10 Harmon % (Auto) 4.4 % 03/17/23 11:10 Eos % (Auto) 0.3 % 03/17/23 11:10 Baso % (Auto) 0.3 % 03/17/23 11:10 Neut # (Auto) 12.50 10^3/uL (1.8-7.7) H 03/17/23 11:10 Lymph # (Auto) 1.1 10^3/uL (0.8-4.8) 03/17/23 11:10 Harmon # (Auto) 0.6 10^3/uL (0.2-0.9) 03/17/23 11:10 Eos # (Auto) 0.0 10^3/uL (0.0-0.8) 03/17/23 11:10 Baso # (Auto) 0.1 10^3/uL (0.0-0.1) 03/17/23 11:10 Nucleated RBC % (auto) 0 % 03/17/23 11:10 Nucleated RBCs # 0.0 /100WBC 03/17/23 11:10 Sodium 137 mmol/L (136-145) 03/17/23 11:10 Potassium 3.8 mmol/L (3.5-5.1) 03/17/23 11:10 Chloride 101 mmol/L (98-107) 03/17/23 11:10 Carbon Dioxide 23 mmol/L (22-29) 03/17/23 11:10 Anion Gap 16.8 (5-19) 03/17/23 11:10 BUN 13 mg/dL (6-20) 03/17/23 11:10 Creatinine 0.8 mg/dL (0.5-0.9) 03/17/23 11:10 GFR Calculation 88.1 mL/min (90-130) L 03/17/23 11:10 Glucose 101 mg/dL (65-115) 03/17/23 11:10 Calculated Osmolality 284 mOsm/kg (285-295) L 03/17/23 11:10 Calcium 9.4 mg/dL (8.5-10.5) 03/17/23 11:10 Total Bilirubin 0.3 mg/dL (0.15-1.2) 03/17/23 11:10 AST 14 U/L (0-32) 03/17/23 11:10 ALT 10 U/L (0-33) 03/17/23 11:10 Alkaline Phosphatase 70 U/L (35-105) 03/17/23 11:10 Total Protein 8.0 g/dL (6.6-8.7) 03/17/23 11:10 Albumin 4.4 g/dL (3.5-5.2) 03/17/23 11:10 Globulin 3.6 g/dL (1.3-4.6) 03/17/23 11:10 All radiology interpretation(s) finalized by discharge Discharge Plan Discharge Patient Disposition: Xfer Short-Term Hosp Clinical Impression: Abscess of parotid masseteric region of face, Dental caries, Dental abscess Condition: Stable Prescriptions: No Action No Known Home Medications Coding Level of Care Code ED Chief Executive for Raul Dempsey
[2023-03-17] MEDS: ketorolac 30 mg/mL INJ 15 MG IVP ×2 (11:31→18:47)
[2023-03-17] MEDS: dexamethasone 10 mg/mL INJ IVP (11:33)
[2023-03-17] MEDS: cefTRIAXone 2,000 MG in sodium chloride 0.9% (plus) 50 ML 100 MG IV (11:36)
[2023-03-17 11:38] LABS: Alanine Aminotransferase 10 U/L (0-33); Albumin Level 4.4 g/dL (3.5-5.2); Alkaline Phosphatase 70 U/L (35-105); Anion Gap 16.8 (5-19); Aspartate Amino Transferase 14 U/L (0-32); Blood Urea Nitrogen 13 mg/dL (6-20); Calcium 9.4 mg/dL (8.5-10.5); Carbon Dioxide 23 mmol/L (22-29); Chloride 101 mmol/L (98-107); Globulin 3.6 g/dL (1.3-4.6); Glomerular Filtration Rate 88.1 mL/min (90-130); Glucose 101 mg/dL (65-115); Osmolality Calculated 284 mOsm/kg (285-295); Potassium 3.8 mmol/L (3.5-5.1); Sodium 137 mmol/L (136-145); Total Bilirubin 0.3 mg/dL (0.15-1.2)
[2023-03-17] MEDS: iohexol 350 mg/mL 500 mL Btl (per mL) IV (11:49)
[2023-03-17] MEDS: morphine 4 mg/mL SDV 1 mL IVP (16:26)
[2023-03-17] MEDS: ondansetron 2 mg/ML SDV 2 mL 4 MG IVP (19:29)
--- NOTE | 2023-03-17 20:24 | PC.NURSE ---
Mother and patient updated on bed status at [facility]; informed that no bed would be available until morning of 03/18. Patient and mother verbalized understanding. Nurse offered to provide warm blankets and a more comfortable chair to keep patient and guest comfortable throughout night.
[2023-03-17] MEDS: famotidine 20 mg/2 mL INJ 40 MG IVP (22:15)
[2023-03-17] MEDS: HYDROmorphone 1 mg/mL INJ 1 mL IVP (22:21)
--- NOTE | 2023-03-18 05:59 | PC.NURSE ---
Dr Ferreira notified that patient requested pain medicine. Verbal orders given to put in order for Dilaudid 1mg IVP once. Order put in.
[2023-03-18 06:04] VITALS: RESP 18
[2023-03-18] MEDS: HYDROmorphone 1 mg/mL INJ 1 mL IVP (06:04)
[2023-03-18 06:07] VITALS: BP 107/62; PULSE 99; RESP 18; O2SAT 100
[2023-03-18] MEDS: cefTRIAXone 2,000 MG in sodium chloride 0.9% (plus) 50 ML 100 MG IV (08:17)
[2023-03-18 09:49] VITALS: O2SAT 100
== END 2023-03-18 09:51 | disposition short-term general hospital (02) ==
PROVIDERS: Family Medicine; Emergency Provider Emergency Medicine
DX: K12.2 Cellulitis and abscess of mouth (principal); K02.9 Dental caries, unspecified; Z87.891 Personal history of nicotine dependence
CPT/HCPCS: 70487; 80053; 85025; 96365; 96366; 96375; 96376; 99285; J0696; J1100; J1170; J1885; J2270; J2405; J3490; Q9967

== ENCOUNTER → 2023-07-31 12:44 | Outpatient (BNVA) | payer MEDICAID, SELFPAY | PROVIDERS: PCP Nurse Practitioner Family; Visit Provider Nurse Practitioner Family | DX: H66.90 Otitis media, unspecified, unspecified ear (principal); J30.89 Other allergic rhinitis; R09.81 Nasal congestion; Z79.899 Other long term (current) drug therapy; Z13.6 Encounter for screening for cardiovascular disorders; R42 Dizziness and giddiness | CPT/HCPCS: 80053; 80061; 81003; 83036; 84439; 84443; 84481; 85025 ==